=== PATIENT | female | born 1985 | race Caucasian/White ===

== ENCOUNTER 2018-03-16 21:58 | Observation (INO) | payer OTHER ==
[~2018-03-16] VITALS: Ht 170.2 cm; Wt 93.0 kg
[2018-03-16] MEDS ORDERED: PNV1TABL76 MT (22:34)
[2018-03-16] MEDS: LACTATED RINGERS 1,000 ML IV SCH (22:56)
[2018-03-16 23:30] LABS: BASOPHILS % 0.1 % (0.0-2.0); HEMATOCRIT. 36.1 % (36.0-48.0); HEMOGLOBIN. 12.3 g/dL (12.0-16.0); LYMPHOCYTES % 34.1 % (20.0-50.0); MEAN CORPUSCULAR HEMOGLOBIN 34.1 pg (28.0-32.0); MEAN CORPUSCULAR VOLUME 99.7 fL (81.0-99.0); MEAN PLATELET VOLUME 11.5 fl (7.4-10.4); MONOCYTES % 5.8 % (2.0-8.0); PLATELET 119 x1000/uL (130-400); RED BLOOD CELL COUNT 3.62 mill/uL (4.2-5.4); RED CELL DISTRIBUTION WIDTH 13.9 % (11.6-14.6)
[2018-03-16 23:41] LABS: INR 0.9; PARTIAL THROMBOPLASTIN TIME 27.4 sec (23.4-31.0); PROTHROMBIN TIME 9.5 sec (9.1-11.1)
[2018-03-17 00:14] LABS: HEPATITIS B SURFACE ANTIGEN NEGATIVE
[2018-03-17] MEDS ORDERED: LACTATED RINGERS 1,000 ML IV SCH (01:11)
[2018-03-17] MEDS: LACTATED RINGERS 1,000 ML IV SCH (08:18)
== END 2018-03-17 11:15 | disposition left against medical advice (07) ==
LOC: L&D 21:58
PROVIDERS: ADMIT Obstetrics & Gynecology; ATTEND Obstetrics & Gynecology
DX: O46.93 Antepartum hemorrhage, unspecified, third trimester (principal); O09.523 Supervision of elderly multigravida, third trimester; Z20.6 Contact with and (suspected) exposure to human immunodeficiency virus [HIV]; Z3A.34 34 weeks gestation of pregnancy
CPT/HCPCS: 36415; 76805; 76818; 82962; 85025; 85610; 85730; 86592; 86703; 86762; 86850; 86900; 86901; 87340; 99281; G0378; 96360; 96361; J7120